=== PATIENT | female | born 2000 | race American Indian/Alaskan Native ===

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

== ENCOUNTER 2021-12-22 18:59 | Emergency (ER) | payer MEDICAID ==
--- NOTE | 2021-12-22 19:47 | Emergency Department Report ---
ED Female HPI - General Chief complaint: Urogenital-Female Stated complaint: UTI Source: patient Mode of arrival: Ambulatory Limitations: No Limitations - History of Present Illness Initial comments: 21-year-old female presents to the ED complaining frequent urination, dysuria x5 days. Patient states that she has noticed some hematuria with urine. state taking Azo across the counter without any relief. States that she recently had a URI. Patient alert and oriented x3. No acute distress noted no ill appearance noted. Patient denies any vaginal discharge. She did states that her menstrual is irregular. Last regular cycle was unknown. Complaint: dysuria Onset/Timin Severity scale (0 -10): 4 Improves with: none Worsens with: none Associated Symptoms: denies other symptoms - Related Data Previous Rx's Medication Instructions Recorded Last Taken Type Phenazopyridine [Pyridium] 200 mg PO TID 2 Days #6 tab 12/22/21 Unknown Rx levoFLOXacin [Levaquin] 750 mg PO QDAY 7 Days #7 tablet 12/22/21 Unknown Rx Allergies Allergy/AdvReac Type Severity Reaction Status Date / Time No Known Allergies Allergy Unverified 10/01/19 15:45 ED Review of Systems ROS: Stated complaint: UTI Other details as noted in HPI Constitutional: denies: chills, fever Eyes: denies: eye pain, eye discharge, vision change ENT: denies: ear pain, throat pain Respiratory: denies: cough, shortness of breath, wheezing Cardiovascular: denies: chest pain, palpitations Endocrine: no symptoms reported Gastrointestinal: denies: abdominal pain, nausea, diarrhea Genitourinary: urgency, dysuria, frequency, hematuria, abnormal menses. denies: discharge Musculoskeletal: denies: back pain, joint swelling, arthralgia Skin: denies: rash, lesions Neurological: denies: headache, weakness, paresthesias Psychiatric: denies: anxiety, depression Hematological/Lymphatic: denies: easy bleeding, easy bruising ED Past Medical Hx - Medications Home Medications: Home Medications Medication Instructions Recorded Confirmed Last Taken Type Phenazopyridine [Pyridium] 200 mg PO TID 2 Days #6 tab 12/22/21 Unknown Rx levoFLOXacin [Levaquin] 750 mg PO QDAY 7 Days #7 tablet 12/22/21 Unknown Rx ED Physical Exam - General Limitations: No Limitations ED Course Vital Signs 12/22/21 12/22/21 19:08 20:40 Temperature 98.7 F Pulse Rate 116 H 100 H Respiratory 16 14 Rate Blood Pressure 131/79 Blood Pressure 101/58 [Right] O2 Sat by Pulse 100 100 Oximetry ED Medical Decision Making - Lab Data Result diagrams: 12/22/21 20:08 12/22/21 20:08 - Medical Decision Making 21-year-old female presents to the ED complaining frequent urination, dysuria x5 days. Patient states that she has noticed some hematuria with urine. state taking Azo across the counter without any relief. States that she recently had a URI. Patient alert and oriented x3. No acute distress noted no ill a ppearance noted. Patient denies any vaginal discharge. She did states that her menstrual is irregular. Last regular cycle was unknown. Critical care attestation.: If time is entered above; I have spent that time in minutes in the direct care of this critically ill patient, excluding procedure time. ED Disposition Clinical Impression: Acute urinary tract infection Disposition: HOME / SELF CARE / HOMELESS Is pt being admited?: No Does the pt Need Aspirin: No Condition: Stable Instructions: Urinary Tract Infection, Adult, [id number] Additional Instructions: Return to the ED for any worsening symptoms Take medication as prescribed Prescriptions: levoFLOXacin [Levaquin] 750 mg PO QDAY 7 Days #7 tablet Phenazopyridine [Pyridium] 200 mg PO TID 2 Days #6 tab Referrals: PRIMARY CARE, [Primary Care Provider] - 3-5 Days [facility] [Provider Group] - 3-5 Days Forms: Work/School Release Form(ED)
[2021-12-22] MEDS ORDERED: SODIUM CHLORIDE 0.9% 1000 ML 1,000 ML IV ONE (19:48)
[2021-12-22 19:54] LABS: Bilirubin,Urine NEG (Negative); Blood,Urine MOD (Negative); Color,Urine Yellow (Yellow); Mucus,Urine 3+ /HPF; Urobilinogen,Urine < 2.0 mg/dL (<2.0)
[2021-12-22 19:58] LABS: RBC,Urine > 182.0 /HPF (0.0-6.0)
[2021-12-22 19:59] LABS: WBC,Urine > 182.0 /HPF (0.0-6.0)
[2021-12-22 20:41] VITALS: BP 101/58
[2021-12-22 21:08] LABS: Basophils % (Auto) 0.3 % (0.0-1.8); Eosinophils # (Auto) 0.2 K/mm3 (0.0-0.4); Hematocrit 36.1 % (30.3-42.9); Hemoglobin 11.7 gm/dl (10.1-14.3); Lymphocytes # (Auto) 1.5 K/mm3 (1.2-5.4); Lymphocytes % (Auto) 16.2 % (13.4-35.0); Mean Corpuscular HGB Conc 32 % (30-34); Mean Corpuscular Volume 94 fl (79-97); Monocytes # (Auto) 1.3 K/mm3 (0.0-0.8); Monocytes % (Auto) 14.6 % (0.0-7.3); Platelet Count 278 K/mm3 (140-440); Red Blood Count 3.86 M/mm3 (3.65-5.03); Red Cell Distribution Width 14.7 % (13.2-15.2)
[2021-12-22 21:26] LABS: Alanine Aminotransferase 7 units/L (7-56); Blood Urea Nitrogen 6 mg/dL (7-17); Calcium 9.3 mg/dL (8.4-10.2); Hemolysis Index 3
[2021-12-22 21:29] LABS: BUN/Creatinine Ratio 9
== END 2021-12-22 21:55 | disposition home or self-care (01) ==
LOC: ED 18:59
DX: N39.0 Urinary tract infection, site not specified (principal)
CPT/HCPCS: 36415; 80053; 81001; 84702; 85025; 96360; 99283